=== PATIENT | female | born 1950 | race Caucasian/White ===

== ENCOUNTER 2021-05-19 20:11 | Emergency (ER) | payer MEDICARE, OTHER ==
--- NOTE | 2021-05-19 21:32 | EDM.PDOC ---
ED HPI GENERAL MEDICAL PROBLEM - General Chief Complaint: Lower Extremity Injury/Pain Stated Complaint: LEFT FOOT SWOLLEN AND PAINFUL Time Seen by Provider: 05/19/21 20:19 Source of Information: Reports: Patient, RN Notes Reviewed History Limitations: Reports: No Limitations - History of Present Illness INITIAL COMMENTS - FREE TEXT/NARRATIVE: Patient is a 70-year-old female presenting to the emergency department with complaints of pain and swelling to her left foot and up into her left lateral ankle and lower calf. Reports symptoms have been coming on gradually. She is currently on a road trip and has been so for almost the last month. She does report that she has had increased sodium in her diet as well as likely not enough fluid intake. She does report some occasional swelling in her right lower extremity as well, however to a lesser degree. 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 She reports that they injected something into the area and she was wearing AARON stockings. Denies any chest pain or shortness of breath. Her main concern is that she could possibly have a DVT in the left lower extremity. She is currently a smoker with a [id number] history. Left Foot Pain Score (Numeric/FACES): 8 - Related Data Allergies Allergy/AdvReac Type Severity Reaction Status Date / Time No Known Allergies Allergy Verified 05/19/21 20:25 Home Meds: Home Meds ALPRAZolam [Xanax] 0.5 mg PO DAILY 05/19/21 [History] Flurazepam [Dalmane] 30 mg PO BEDTIME 05/19/21 [History] estradioL [Estrace] 1 mg PO DAILY 05/19/21 [History] Past Medical History HEENT History: Reports: Cataract, Sinusitis Other HEENT History: inocular implants Cardiovascular History: Reports: Other (See Below) Other Cardiovascular History: prolapse mitral valve Respiratory History: Reports: Bronchitis, Recurrent, Pneumonia, Recurrent [employer] History: Reports: Endometriosis Musculoskeletal History: Reports: Arthritis, Osteoarthritis, Osteoporosis Neurological History: Reports: Concussion Psychiatric History: Reports: Depression Oncologic (Cancer) History: Reports: Colon - Infectious Disease History Infectious Disease History: Reports: Chicken Pox, Herpes, Measles - Past Surgical History GI Surgical History: Reports: Appendectomy, Colonoscopy, Other (See Below) Other GI Surgeries/Procedures: colon resection 1996; cancer to colon-chemo for a year Female Surgical History: Reports: Hysterectomy Other Female Surgeries/Procedures: 1983 Social & Family History - Tobacco Use Tobacco Use Status *Q: Current Every Day Tobacco User Years of Tobacco use: 45 Packs/Tins Daily: 1 - Caffeine Use Caffeine Use: Reports: Coffee - Recreational Drug Use Recreational Drug Use: No Review of Systems - Review of Systems Review Of Systems: Comprehensive ROS is negative, except as noted in HPI. ED EXAM, GENERAL - Physical Exam Exam: See Below General Appearance: Alert, WD/WN, No Apparent Distress Respiratory/Chest: No Respiratory Distress, Lungs Clear, Normal Breath Sounds, No Accessory Muscle Use, Chest Non-Tender Cardiovascular: Normal Peripheral Pulses, Regular Rate, Rhythm, No Gallop, No JVD, No Murmur, No Rub Extremities: Other (2+ edema with tenderness to palpation of the LLE from mid- calf to mid foot. 1+ edema to RLE. No tenderness to palpation. No redness or warmth to either extremities.) Course - Vital Signs Last Recorded V/S: Last Vital Signs Temp 97.6 F 05/19/21 20:37 Pulse 78 05/19/21 20:37 Resp 20 05/19/21 20:37 BP 113/76 05/19/21 20:37 Pulse Ox 94 L 05/19/21 20:37 - Orders/Labs/Meds Labs: Laboratory Tests 05/19/21 05/19/21 05/19/21 Range/Units 21:15 21:15 21:15 WBC 12.72 H (3.98-10.04) K/mm3 RBC 4.47 (3.98-5.22) M/mm3 Hgb 13.7 (11.2-15.7) gm/dl Hct 42.4 (34.1-44.9) % MCV 94.9 H (79.4-94.8) fl MCH 30.6 (25.6-32.2) pg MCHC 32.3 (32.2-35.5) g/dl RDW Std Deviation 51.4 H (36.4-46.3) fL Plt Count 195 (182-369) K/mm3 MPV 10.5 (9.4-12.3) fl Neut % (Auto) 44.6 (34.0-71.1) % Lymph % (Auto) 40.3 (19.3-51.7) % Elliott % (Auto) 9.7 (4.7-12.5) % Eos % (Auto) 4.6 (0.7-5.8) Baso % (Auto) 0.6 (0.1-1.2) % Neut # (Auto) 5.67 (1.56-6.13) K/mm3 Lymph # (Auto) 5.13 H (1.18-3.74) K/mm3 Elliott # (Auto) 1.23 H (0.24-0.36) K/mm3 Eos # (Auto) 0.59 H (0.04-0.36) K/mm3 Baso # (Auto) 0.08 (0.01-0.08) K/mm3 Manual Slide Review Abnormal smear PT 9.9 (9.7-12.0) SECONDS INR < 0.93 Sodium 145 (136-145) mEq/L Potassium 4.3 (3.5-5.1) mEq/L Chloride 108 H (98-107) mEq/L Carbon Dioxide 27 (21-32) mEq/L Anion Gap 14.3 (5-15) BUN 22 H (7-18) mg/dL Creatinine 1.2 H (0.55-1.02) mg/dL Est Cr Clr Drug Dosing 42.42 mL/min Estimated GFR (MDRD) 44 (>60) mL/min BUN/Creatinine Ratio 18.3 H (14-18) Glucose 104 H (70-99) mg/dL Calcium 8.8 (8.5-10.1) mg/dL Total Bilirubin 0.2 (0.2-1.0) mg/dL AST 10 L (15-37) U/L ALT 13 L (14-59) U/L Alkaline Phosphatase 60 (46-116) U/L Total Protein 7.5 (6.4-8.2) g/dl Albumin 3.1 L (3.4-5.0) g/dl Globulin 4.4 gm/dL Albumin/Globulin Ratio 0.7 L (1-2) - Re-Assessments/Exams Free Text/Narrative Re-Assessment/Exam: 05/19/21 23:10 Ultrasound of the left lower extremity shows no evidence of DVT. Blood work is overall unremarkable. Results discussed with patient. Recommend that she try to wear compression stockings while they are in the vehicle for extended periods of time. Also recommend elevating the extremities as much as possible. Pernell gan question if it could possibly be gout. While this is possible, this would not account for the intermittent swelling in her right lower extremity as well. She reports that she had taken a Medrol Dosepak in the past and it "almost her kidneys down ". Based on this, I would not prescribe prednisone. Recommend that she try [id number] ibuprofen or Naprosyn in addition to the previous interventions. If symptoms should worsen anyway, recommend that she be reevaluated at the nearest medical facility. Discharge instructions as documented. Departure - Departure Time of Disposition: 23:11 Disposition: Home, Self-Care 01 Condition: Good Clinical Impression: Peripheral edema - Discharge Information *PRESCRIPTION DRUG MONITORING PROGRAM REVIEWED*: No *COPY OF PRESCRIPTION DRUG MONITORING REPORT IN PATIENT NICOLASA: No Instructions: Edema Referrals: PCP,Not In Area [Primary Care Provider] - Forms: ED Department Discharge Additional Instructions: You were seen in the emergency department today for pain and swelling to your left lower extremity as well as intermittent symptoms to a lesser degree of the right lower extremity. Work-up included blood work and an ultrasound of your left lower extremity. Results of your work-up were found to be normal. There are no blood clots left lower extremity. As we discussed, the likely cause is dependent edema from extended periods of time sitting. A mild case of gout is also possible, but less likely. Recommend elevation of the lower extremities whenever possible. When you are going to be in the car for an extended period time, would recommend compression stockings. You may use [id number] NSAIDs such as ibuprofen or naproxen routinely for the next few days. If this is a mild case of gout, these medications are used for the treatment of this. If symptoms should worsen in any way or you develop any new symptoms of concern,, recommend that she be reevaluated at the nearest medical facility. Sepsis Event Note (ED) - Evaluation Sepsis Screening Result: No Definite Risk
--- NOTE | 2021-05-20 07:05 | US ---
Left lower extremity deep venous ultrasound: Duplex and color Doppler evaluation was obtained of the left common femoral, proximal greater saphenous, superficial femoral, popliteal, posterior tibial and peroneal veins. Right common femoral vein was also evaluated. Comparison: No prior venous imaging is available. Findings: Normal phasic flow, augmentation and compression are seen. Impression: 1. No findings of deep venous thrombosis within the right lower extremity or within the left common femoral vein. Diagnostic code #1 I agree with preliminary report from [facility], finalized on 05/19/21, 11:40 PM CDT, code 1
== END 2021-05-19 23:23 | disposition home or self-care (01) ==
LOC: JD.ED 20:11
DX: R60.0 Localized edema (principal); F17.210 Nicotine dependence, cigarettes, uncomplicated
CPT/HCPCS: 36415; 80053; 85025; 85610; 93971-26-LT; 93971-LT; 99283; 99284-25